=== PATIENT | male | born 1960 | race Caucasian/White ===

== ENCOUNTER 2017-01-23 06:45 | Day surgery (SDC) | payer BC ==
[2017-01-19 14:17] VITALS: BMI 32.5
[~2017-01-23 06:45] MED LIST: LACTATED RINGERS 1,000 ML IV SCH
[2017-01-23 07:11] VITALS: TEMP 97.8
[2017-01-23 07:19] LABS: Glucose,Whole Blood 146 mg/dL (75-99)
[2017-01-23] MEDS ORDERED: PROPOFOL 10 MG/ML 20 ML VIAL IV ONE (07:34)
[2017-01-23] MEDS ORDERED: LIDOCAINE 1% INJ 10MG/ML (20 ML MDV) ONE (07:34)
--- NOTE | 2017-01-23 08:00 | P.GSHP ---
History of Present Illness H&P Date: 01/23/17 Chief Complaint: GI bleed This is a 56-year-old male presents today for screening colonoscopy. He's had issues with GI bleed. Past Medical History Past Medical History: Diabetes Mellitus Additional Past Medical History / Comment(s): TAKEN OFF DIABETIC MEDS 3 MONTHS AGO- WATCHING DIET., EPISODE OF RECTAL BLEEDING X2. History of Any Multi-Drug Resistant Organisms: None Reported Past Surgical History: Orthopedic Surgery, Tonsillectomy Additional Past Surgical History / Comment(s): COLONOSCOPY, LEFT TORN MENISCUS. Past Anesthesia/Blood Transfusion Reactions: No Reported Reaction Past Psychological History: No Psychological Hx Reported Smoking Status: Former smoker Past Alcohol Use History: Rare Additional Past Alcohol Use History / Comment(s): QUIT SMOKING 1995. SMOKED 1 PPD . SMOKED APPROX 15 YEARS. Past Drug Use History: None Reported - Past Family History Mother Family Medical History: Cancer Additional Family Medical History / Comment(s): FEMALE CANCER Medications and Allergies Home Medications Medication Instructions Recorded Confirmed Type Ascorbic Acid [Vitamin C] 500 mg PO DAILY 01/19/17 01/23/17 History Naproxen Sodium [Aleve] 220 mg PO DAILY PRN 01/19/17 01/23/17 History Allergies Allergy/AdvReac Type Severity Reaction Status Date / Time No Known Allergies Allergy Verified 01/19/17 13:08 Surgical - Exam Vital Signs Temp Pulse Resp BP Pulse Ox 97.8 F 100 14 139/90 94 L 01/23/17 07:08 01/23/17 07:08 01/23/17 07:08 01/23/17 07:08 01/23/17 07:08 - General well developed, no distress - Eyes PERRL - ENT normal pinna - Neck no masses - Respiratory normal expansion - Cardiovascular Rhythm: regular - Abdomen Abdomen: soft, non tender Hernia: umbilical Results - Labs Abnormal Lab Results - Last 24 Hours (Table) 01/23/17 Range/Units 07:16 POC Glucose (mg/dL) 146 H (75-99) mg/dL Assessment and Plan Plan: GI bleed. We'll perform colonoscopy.
--- NOTE | 2017-01-23 08:14 | P.OP ---
Date of Procedure: 01/23/17 Preoperative Diagnosis: GI bleed Postoperative Diagnosis: Colon polyp at 20 cm Procedure(s) Performed: Colonoscopy Anesthesia: MAC Surgeon: Steve Bridges Pathology: other (Polyp at 20 cm) Condition: stable Disposition: PACU Description of Procedure: The patient's placed on the endoscopy table in the lateral position. He received IV sedation. Digital rectal exam was performed which revealed no abnormalities. The flexible colonoscope was then placed patient anus passed throughout the entire colon. The ileocecal valve was visualized. The cecum, ascending and transverse colon appeared normal. The descending and sigmoid colon appeared normal. The scope was then brought back and in the rectum at the 20 cm gabo there was a sessile polyp. This is removed with the biopsy forcep. The remainder the rectum appeared normal. Scope was withdrawn from from the patient.
[2017-01-23 08:17] VITALS: RESP 16
[2017-01-23 08:27] VITALS: PULSE 84
[2017-01-23 08:54] VITALS: BP 114/86
== END 2017-01-23 09:08 | disposition home or self-care (01) ==
LOC: ORWHC2ENDO 06:45
PROVIDERS: ATTEND Surgery
DX: K63.5 Polyp of colon (principal); K92.2 Gastrointestinal hemorrhage, unspecified; Z87.891 Personal history of nicotine dependence; Z79.899 Other long term (current) drug therapy
CPT/HCPCS: 88305; 45380; J2001; J2704

== ENCOUNTER 2017-04-04 05:59 | Day surgery (SDC) | payer BC ==
[2017-04-03 10:01] VITALS: BMI 31.8
[~2017-04-04 05:59] MED LIST changes: +DEXAMETHASONE SOD PHOSPHATE 10 MG/ML 1 ML VIAL IV ONE; +HEPARIN SODIUM,PORCINE 5,000 UNIT/ML 1 ML VIAL SQ ONE; +HYDROmorphone 0.5 MG/0.5 ML SYRINGE IVP PRN; +MIDAZOLAM 2 MG/2 ML VIAL IV PRN; +ONDANSETRON 4 MG/2 ML VIAL IVP ONE; +ceFAZolin IN SWFI 2 GM/20 ML SYRINGE IVP ONE
[2017-04-04 06:35] LABS: Glucose,Whole Blood 139 mg/dL (75-99)
[2017-04-04] MEDS ORDERED: LIDOCAINE 1% 20 ML VIAL (10MG/ML) FOR IV START INTRADERMA ONE (06:45)
[2017-04-04] MEDS ORDERED: BUPIVACAIN-EPI 0.25%-1:200,000 30 ML VIAL SQ ONE ×2 (07:23→08:22)
[2017-04-04] MEDS ORDERED: LIDOCAINE 2%-EPI 1:100,000 20 ML VIAL SQ ONE ×2 (07:23→08:22)
--- NOTE | 2017-04-04 07:52 | P.GSHP ---
History of Present Illness H&P Date: 04/04/17 Chief Complaint: Incarcerated umbilical hernia This a 56-year-old male who presents today for laparoscopic robotic-assisted repair of incarcerated inguinal hernia. Patient has an umbilical hernia for several years. He has increased in size and has had more discomfort the last 6 months. Past Medical History Past Medical History: Diabetes Mellitus Additional Past Medical History / Comment(s): TAKEN OFF DIABETIC MEDS 5 MONTHS AGO- WATCHING DIET. History of Any Multi-Drug Resistant Organisms: None Reported Past Surgical History: Orthopedic Surgery, Tonsillectomy Additional Past Surgical History / Comment(s): COLONOSCOPY, LEFT TORN MENISCUS. Past Anesthesia/Blood Transfusion Reactions: No Reported Reaction Smoking Status: Former smoker - Past Family History Mother Family Medical History: Cancer Additional Family Medical History / Comment(s): FEMALE CANCER Medications and Allergies Home Medications Medication Instructions Recorded Confirmed Type Ascorbic Acid [Vitamin C] 500 mg PO DAILY 01/19/17 04/03/17 History Naproxen Sodium [Aleve] 220 mg PO DAILY PRN 01/19/17 04/04/17 History Allergies Allergy/AdvReac Type Severity Reaction Status Date / Time No Known Allergies Allergy Verified 04/03/17 09:56 Surgical - Exam Vital Signs Temp Pulse Resp BP Pulse Ox 98.1 F 87 16 142/83 96 04/04/17 06:21 04/04/17 06:21 04/04/17 06:21 04/04/17 06:21 04/04/17 06:21 - General well developed, no distress - Eyes PERRL - ENT normal pinna - Neck no masses - Respiratory normal expansion - Cardiovascular Rhythm: regular - Abdomen Abdomen: soft, non tender Results - Labs Abnormal Lab Results - Last 24 Hours (Table) 04/04/17 Range/Units 06:30 POC Glucose (mg/dL) 139 H (75-99) mg/dL Assessment and Plan Assessment: Incarcerated umbilical hernia. We'll perform laparoscopic robotic assistance repair.
[2017-04-04] MEDS ORDERED: ROCURONIUM BROMIDE 10 MG/ML 10 ML VIAL IV ONE (07:58)
[2017-04-04] MEDS ORDERED: MIDAZOLAM 2 MG/2 ML VIAL ONE (07:58)
[2017-04-04] MEDS ORDERED: SUCCINYLCHOLINE CHLORIDE 100 MG/5 ML SYR IV ONE (07:58)
[2017-04-04] MEDS ORDERED: KETOROLAC 30 MG/ML 1 ML VIAL ONE (07:58)
[2017-04-04] MEDS ORDERED: GLYCOPYRROLATE 0.2 MG/ML 2 ML VIAL ONE (07:58)
[2017-04-04] MEDS ORDERED: LIDOCAINE 1% INJ 10MG/ML (20 ML MDV) ONE (07:58)
[2017-04-04] MEDS ORDERED: PROPOFOL 10 MG/ML 20 ML VIAL IV ONE (07:58)
[2017-04-04] MEDS ORDERED: NEOSTIGMINE 1 MG/ML 10 ML VIAL ONE (07:58)
[2017-04-04] MEDS ORDERED: fentaNYL (PF) 50 MCG/ML 2 ML AMP ONE (07:58)
[2017-04-04] MEDS ORDERED: LACTATED RINGERS 1,000 ML IV ONE (09:07)
--- NOTE | 2017-04-04 09:15 | P.OP ---
Date of Procedure: 04/04/17 Preoperative Diagnosis: Incarcerated umbilical hernia Postoperative Diagnosis: Incarcerated umbilical hernia Procedure(s) Performed: Laparoscopic robotic repair of incarcerated umbilical hernia Anesthesia: JARROD Surgeon: Steve Bridges Estimated Blood Loss (ml): 5 Pathology: other (Incarcerated fat fat) Condition: stable Disposition: PACU Description of Procedure: The patient's placed on the operating table in supine position. He received general anesthesia. His abdomen was prepped and draped usual sterile fashion. The skin incision sites were anesthetized 1% local Xylocaine. Using 11 blade the skin was incised left quadrant and then using a 8 mm robotic trocar under direct visualization peritoneal cavity is entered. The abdomen was then insufflated air. Next the 8 mm robotic trochars placed in the left lower quadrant and a 12 mm robotic trochars placed in the left lateral position. The patient's placed in the left side up position. He was then docked to the robot. The incarcerated fat was dissected free from the hernia using the hook cautery. The fascial defect was then repaired using OV lock suture. The repair was then buttressed with ventral light ST mesh secured with 2 OV lock suture. The patient was then undocked the robot. The needles were retrieved. The skin was then closed with interrupted 3-0 Monocryl suture. Dermabond was applied. Patient was sent to recovery in stable condition.
[2017-04-04 09:28] VITALS: TEMP 97.7
[2017-04-04 09:36] LABS: Glucose,Whole Blood 181 mg/dL (75-99)
[2017-04-04 10:08] VITALS: RESP 18
[2017-04-04 10:42] VITALS: BP 134/78; PULSE 88
== END 2017-04-04 11:07 | disposition home or self-care (01) ==
LOC: OR 05:59
PROVIDERS: ATTEND Surgery
DX: K42.0 Umbilical hernia with obstruction, without gangrene (principal); E11.9 Type 2 diabetes mellitus without complications; Z79.899 Other long term (current) drug therapy; Z87.891 Personal history of nicotine dependence; Z80.9 Family history of malignant neoplasm, unspecified
CPT/HCPCS: 49653; C1781; J2250; J1644; J1100; J2710; J0690; J2405; J2001; J3010; J1885; J0330; J2704; J1170; 88302

== ENCOUNTER 2024-01-12 06:38 | Observation (INO) | payer BC ==
[2024-01-12 06:44] VITALS: TEMP 97.5
--- NOTE | 2024-01-12 06:53 | ED ---
Chest Pain HPI - General Chief Complaint: Chest Pain Stated Complaint: Chest Pain Time Seen by Provider: 01/12/24 06:52 Source: patient, RN notes reviewed Mode of arrival: wheelchair Limitations: no limitations - History of Present Illness Initial Comments: 63-year-old male presented to ER with a chief complaint of stabbing chest pain. Patient states when he woke up this morning he noted a sharp stabbing chest pain. He denies any radiation. He states it is centralized in center chest. States pain is worse with deep breathing. Denies any nausea or vomiting. Does report mild dizziness. No peripheral edema. Reports a history of diabetes and high blood pressure. No history of MIs. - Related Data Home Medications Medication Instructions Recorded Confirmed Ascorbic Acid [Vitamin C] 500 mg PO DAILY 01/19/17 04/03/17 Naproxen Sodium [Aleve] 220 mg PO DAILY PRN 01/19/17 04/04/17 Previous Rx's Medication Instructions Recorded Docusate [Colace] 100 mg PO BID #20 capsule 04/04/17 HYDROcodone/APAP 7.5-325MG [[place] 1 each PO Q4H PRN #30 tab 04/04/17 7.5] Allergies Allergy/AdvReac Type Severity Reaction Status Date / Time No Known Allergies Allergy Verified 01/12/24 06:44 Review of Systems ROS Statement: Those systems with pertinent positive or pertinent negative responses have been documented in the HPI. ROS Other: All systems not noted in ROS Statement are negative. EKG Findings - EKG Comments: EKG Findings:: EKG taken at 6: 44 showing a sinus rhythm with occasional PVC. No acute ST segment or T wave abnormalities. Ventricular rate 88, FL interval 200, QRS duration 93, QT/QTc 327/372 Past Medical History Past Medical History: Diabetes Mellitus Additional Past Medical History / Comment(s): TAKEN OFF DIABETIC MEDS 3 MONTHS AGO- WATCHING DIET., EPISODE OF RECTAL BLEEDING X2. History of Any Multi-Drug Resistant Organisms: None Reported Past Surgical History: Orthopedic Surgery, Tonsillectomy Additional Past Surgical History / Comment(s): COLONOSCOPY, LEFT TORN MENISCUS. Past Anesthesia/Blood Transfusion Reactions: No Reported Reaction Past Psychological History: No Psychological Hx Reported Smoking Status: Never smoker Past Alcohol Use History: Rare Past Drug Use History: None Reported - Past Family History Mother Family Medical History: Cancer Additional Family Medical History / Comment(s): FEMALE CANCER General Exam Limitations: no limitations General appearance: alert, in no apparent distress Respiratory exam: Present: normal lung sounds bilaterally. Absent: respiratory distress, wheezes, rales, rhonchi, stridor Cardiovascular Exam: Present: regular rate, normal rhythm, normal heart sounds. Absent: systolic murmur, diastolic murmur, rubs, gallop, clicks Extremities exam: Present: normal inspection, full ROM, normal capillary refill. Absent: tenderness, pedal edema, joint swelling, calf tenderness Neurological exam: Present: alert, oriented X3, CN II-XII intact Skin exam: Present: warm, dry, intact, normal color. Absent: rash Course Vital Signs 01/12/24 01/12/24 06:41 08:04 Temperature 97.5 F L Pulse Rate 100 88 Respiratory 24 20 Rate Blood Pressure 151/91 115/80 O2 Sat by Pulse 99 95 Oximetry - Reevaluation(s) Reevaluation #1: 01/12/24 07:30 Patient reevaluated, chest discomfort has resolved. No signs of acute distress. Reevaluation #2: 01/12/24 08:08 Case discussed with [facility], Dr. Contreras for admission. Chest Pain MDM - MDM Was pt. sent in by a medical professional or institution (, PA, [employer], urgent care, hospital, or usp...) When possible be specific @ -No Did you speak to anyone other than the patient for history (EMS, parent, family, police, friend...)? What history was obtained from this source @ -No Did you review nursing and triage notes (agree or disagree)? Why? @ -I reviewed and agree with nursing and triage notes Were old charts reviewed (outside hosp., previous admission, EMS record, old EKG, old radiological studies, urgent care reports/EKG's, usp records)? Report findings @ -No old charts were reviewed Differential Diagnosis (chest pain, altered mental status, abdominal pain women, abdominal pain men, vaginal bleeding, weakness, fever, dyspnea, syncope, headach e, dizziness, GI bleed, back pain, seizure, CVA, palpatations, mental health, musculoskeletal)? @ -Differential Chest Pain: Stable Angina, Unstable Angina, STEMI, NSTEMI Aortic Dissection, Pneumothorax, Musculoskeletal, Esophageal Spasm GERD, Cholecystitis, Pancreatitis, Zoster, this is not meant to be an all-inclusive list. EKG interpreted by me (3pts min.). @ -As above X-rays interpreted by me (1pt min.). @ -Chest x-ray interpreted by me negative for acute cardiopulmonary process. CT interpreted by me (1pt min.). @ -None done U/S interpreted by me (1pt. min.). @ -None done What testing was considered but not performed or refused? (CT, X-rays, U/S, labs)? Why? @ -None What meds were considered but not given or refused? Why? @ -None Did you discuss the management of the patient with other professionals (professionals i.e. , PA, [employer], lab, RT, psych nurse, social services aide, guard immigration, teacher, surface to air weapons officer, case planner)? Give summary @ -Discussed with [facility], for admission. Was smoking cessation discussed for >3mins.? @ -No Was critical care preformed (if so, how long)? @ -No Were there social determinants of health that impacted care today? How? (Homelessness, low income, unemployed, alcoholism, drug addiction, transportation, low edu. Level, literacy, decrease access to med. care, retirement, rehab)? @ -No Was there de-escalation of care discussed even if they declined (Discuss DNR or withdrawal of care, Hospice)? DNR status @ -No What co-morbidities impacted this encounter? (DM, HTN, Smoking, COPD, CAD, Cancer, CVA, ARF, Chemo, Hep., AIDS, mental health diagnosis, sleep apnea, morbid obesity)? @ -Diabetes mellitus, hypertension Was patient admitted / discharged? Hospital course, mention meds given and route, prescriptions, significant lab abnormalities, going to OR and other pertinent info. @ -Admitted. 63-year-old male presented to ER with a chief complaint of chest discomfort. History and physical exam completed. Vitals upon arrival remarkable for temperature of 97.5, heart rate 100, respiratory 24, blood pressure 151/91, oxygen saturation 98% on room air. Patient in no signs of acute distress and nontoxic appearing. No acute findings on exam. Laboratory studies unremarkable. Initial troponin undetectable. EKG showing sinus rhythm with no acute infarct or ischemia. Patient received IV fluids in the ER. Interpreted by me negative for acute cardiopulmonary process. HEART score 3. Due to patient's medical history and age admission was considered and discussed with [facility], Dr. Contreras for further cardiac work up rule out ACS. On reevaluation, patient reporting improved symptoms with no current chest pain. Patient agreeable for admission. Patient admitted in stable condition for further evaluation and treatment. Cardiology on consult. Case discussed with ED attending Dr. Salinas. Undiagnosed new problem with uncertain prognosis? @ -No Drug Therapy requiring intensive monitoring for toxicity (Heparin, Nitro, Insulin, Cardizem)? @ -No Were any procedures done? @ -No Diagnosis/symptom? @ -Chest pain Acute, or Chronic, or Acute on Chronic? @ -Acute Uncomplicated (without systemic symptoms) or Complicated (systemic symptoms)? @ -Complicated Side effects of treatment? @ -No Exacerbation, Progression, or Severe Exacerbation? @ -No Poses a threat to life or bodily function? How? (Chest pain, [place], IA, pneumonia, PE, COPD, DKA, ARF, appy, cholecystitis, CVA, Diverticulitis, Homicidal, Suicidal, threat to staff... and all critical care pts) @ -Yes, chest pain can be ACS which can lead to cardiac arrhythmias which can be life threatening. Disposition Clinical Impression: Chest pain Disposition: ADMITTED IP TO THIS HOSP Condition: Stable Time of Disposition: 08:09
[2024-01-12] MEDS: SODIUM CHLORIDE 0.9% 1,000 ML IV STA (07:02)
[2024-01-12 07:14] LABS: Basophils % (A) 0 %; Eosinophils # (A) 0.2 k/uL (0-0.7); Eosinophils % (A) 3 %; HCT 49.5 % (39.0-53.0); HGB 16.8 gm/dL (13.0-17.5); Lymphocytes # (A) 1.8 k/uL (1.0-4.8); Lymphocytes % (A) 29 %; MCH 31.7 pg (25.0-35.0); MCHC 33.9 g/dL (31.0-37.0); MCV 93.3 fL (80.0-100.0); Monocytes # (A) 0.3 k/uL (0-1.0); Monocytes % (A) 5 %; Neutrophils # (A) 3.8 k/uL (1.3-7.7); Neutrophils % (A) 61 %; Platelet Count 236 k/uL (150-450); RBC 5.31 m/uL (4.30-5.90); RDW 13.7 % (11.5-15.5); WBC 6.3 k/uL (3.8-10.6)
[2024-01-12 07:31] LABS: INR 0.9 (<1.2); Partial Thromboplastin Time 26.7 sec (22.0-30.0); Prothrombin Time 10.4 sec (10.0-12.5)
[2024-01-12 07:33] LABS: ALT 25 U/L (4-49); AST 22 U/L (17-59); African American GFR (CKD) >90 (>60 ml/min/1.73 sqM); Albumin 4.7 g/dL (3.5-5.0); Alkaline Phosphatase 47 U/L (38-126); Anion Gap 8 mmol/L; Blood Urea Nitrogen 19 mg/dL (9-20); Calcium 9.8 mg/dL (8.4-10.2); Carbon Dioxide 23 mmol/L (22-30); Chloride 108 mmol/L (98-107); Glucose 121 mg/dL (74-99); Magnesium 1.9 mg/dL (1.6-2.3); Non-African American GFR(CKD) 82 (>60 ml/min/1.73 sqM); Potassium 4.6 mmol/L (3.5-5.1); Sodium 139 mmol/L (137-145); Total Bilirubin 0.8 mg/dL (0.2-1.3)
--- NOTE | 2024-01-12 07:57 | XR ---
EXAMINATION TYPE: XR chest 2V DATE OF EXAM: 01/12/2024 COMPARISON: 01/01/2013 TECHNIQUE: PA and lateral views submitted. HISTORY: Chest pain FINDINGS: The lungs are clear and there is no pneumothorax, pleural effusion, or focal pneumonia. Heart size normal and no overt failure. Osseous structures demonstrate hypertrophic and degenerative changes of the spine. Nodule overlying the right lung likely related neural shadow. IMPRESSION: 1. No acute process.
[2024-01-12] MEDS: NITROGLYCERIN SL TABS 0.4 MG TAB SUBLINGUAL STA (08:05)
[2024-01-12] MEDS ORDERED: NALOXONE 0.4 MG/ML 1 ML VIAL IV PRN (08:06)
[2024-01-12] MEDS: SODIUM CHLORIDE 0.9% 1,000 ML IV SCH (08:42)
--- NOTE | 2024-01-12 10:18 | P.CRDCN ---
History of Present Illness Consult date: 01/12/24 Consult reason: chest pain History of present illness: This is a 63-year-old male with no previous cardiac history. He has a past medical history of hypertension, hyperlipidemia, diabetes mellitus type 2. We have been asked to evaluate the patient for chest pain. Patient states that he was sleeping when he opened his eyes he experienced left-sided chest pain at the left sternal border. He had increased pain with deep breathing. Pain is completely gone now. No history of CVA no history of DE. He quit smoking in 1995. He is normally very active and was mowing lawns and doing yard work yesterday. Blood pressure 26/84, heart rate 80, pulse ox 95% on room air. Repeat troponins are pending. EKG: Sinus rhythm with no acute ST-T wave changes. Chest x-ray: No acute process Laboratory studies: CBC normal. D-dimer 0.3. Sodium 139, potassium 4.6, BUN 19 and creatinine 0.99. Troponin negative x 1. Magnesium 1.9. Home cardiac medications: Atorvastatin 20 mg at bedtime, lisinopril 5 mg daily. Review Of Systems: At the time of my exam: CONSTITUTIONAL: Denies fever or chills. HEENT: Denies blurred vision, vision changes, or eye pain. Denies hemoptysis CARDIOVASCULAR: Denies chest pain. Denies orthopnea. Denies PND. Denies pal pitations RESPIRATORY: Denies shortness of breath. GASTROINTESTINAL: Denies abdominal pain. Denies nausea or vomiting. HEMATOLOGIC: Denies bleeding disorders. GENITOURINARY: Denies any blood in urine. SKIN: Denies puritis. Denies rash. Physical examination: Gen: This is a 63-year-old male in no acute distress VS: reviewed HEENT: Head is atraumatic, normocephalic. Pupils equal, round. Sclerae is anicteric. NECK: Supple. No JVD. LUNGS: Clear to auscultation. No wheezes or rhonchi. No intercostal retractions. HEART: Regular rate and rhythm. No murmur. ABDOMEN: Soft No tenderness. EXTREMITIES: No pedal edema. No calf tenderness. NEUROLOGICAL: Patient is awake, alert and oriented x3. Assessment: Atypical chest pain, acute coronary syndrome ruled out Plan: Resume patient's home cardiac medications Obtain repeat troponin at noon Obtain 2-D echocardiogram and Doppler study to assess cardiac structure and function If testing is unremarkable, patient may get up and ambulate and assess for chest pain. If patient is chest pain-free, he is cleared for discharge and may follow-up in the office with Dr. NASRIN Mcdermott in 1 week and plan for outpatient stress testing. Thank you kindly for this consultation. Nurse practitioner note has been reviewed, I agree with documented findings and plan of care. Patient was seen and examined. Past Medical History Past Medical History: Diabetes Mellitus Additional Past Medical History / Comment(s): TAKEN OFF DIABETIC MEDS 3 MONTHS AGO- WATCHING DIET., EPISODE OF RECTAL BLEEDING X2. History of Any Multi-Drug Resistant Organisms: None Reported Past Surgical History: Orthopedic Surgery, Tonsillectomy Additional Past Surgical History / Comment(s): COLONOSCOPY, LEFT TORN MENISCUS. Past Anesthesia/Blood Transfusion Reactions: No Reported Reaction Past Psychological History: No Psychological Hx Reported Smoking Status: Never smoker Past Alcohol Use History: Rare Past Drug Use History: None Reported - Past Family History Mother Family Medical History: Cancer Additional Family Medical History / Comment(s): FEMALE CANCER Medications and Allergies Home Medications Medication Instructions Recorded Confirmed Type Atorvastatin [Lipitor] 20 mg PO HS 01/12/24 01/12/24 History Empagliflozin [Jardiance] 25 mg PO DAILY 01/12/24 01/12/24 History Semaglutide [Ozempic] 2 mg SQ FR 01/12/24 01/12/24 History icosapent ethyL [Icosapent Ethyl] 2 gm PO BID 01/12/24 01/12/24 History lisinopriL [Prinivil] 5 mg PO DAILY 01/12/24 01/12/24 History metFORMIN HCL 1,000 mg PO BID 01/12/24 01/12/24 History Allergies Allergy/AdvReac Type Severity Reaction Status Date / Time No Known Allergies Allergy Verified 01/12/24 09:06 Physical Exam Vitals: Vital Signs Temp Pulse Resp BP Pulse Ox 01/12/24 08:04 88 20 115/80 95 01/12/24 06:41 97.5 F L 100 24 151/91 99 Intake and Output 01/11/24 01/12/24 01/12/24 22:59 06:59 14:59 Other: Weight 117.934 kg Results 01/12/24 06:44 01/12/24 06:44 Cardiac Enzymes 01/12/24 01/12/24 Range/Units 06:44 06:44 AST 22 (17-59) U/L Troponin I <0.012 (0.000-0.034) ng/mL Coagulation 01/12/24 Range/Units 06:44 PT 10.4 (10.0-12.5) sec APTT 26.7 (22.0-30.0) sec CBC 01/12/24 Range/Units 06:44 WBC 6.3 (3.8-10.6) k/uL RBC 5.31 (4.30-5.90) m/uL Hgb 16.8 (13.0-17.5) gm/dL Hct 49.5 (39.0-53.0) % Plt Count 236 (150-450) k/uL Comprehensive Metabolic Panel 01/12/24 Range/Units 06:44 Sodium 139 (137-145) mmol/L Potassium 4.6 (3.5-5.1) mmol/L Chloride 108 H (98-107) mmol/L Carbon Dioxide 23 (22-30) mmol/L BUN 19 (9-20) mg/dL Creatinine 0.99 (0.66-1.25) mg/dL Glucose 121 H (74-99) mg/dL Calcium 9.8 (8.4-10.2) mg/dL AST 22 (17-59) U/L ALT 25 (4-49) U/L Alkaline Phosphatase 47 (38-126) U/L Total Protein 7.0 (6.3-8.2) g/dL Albumin 4.7 (3.5-5.0) g/dL Current Medications Generic Name Dose Route Start Last Admin Trade Name Freq PRN Reason Stop Dose Admin Sodium Chloride 1,000 mls @ 75 mls/hr 01/12/24 08:15 01/12/24 08:42 Saline 0.9% IV 75 mls/hr .[id number] [place] Administration Naloxone HCl 0.2 mg 01/12/24 08:06 Naloxone 0.4 Mg/Ml 1 Ml Vial IV Q2M PRN Opioid Reversal Intake and Output 01/11/24 01/12/24 01/12/24 22:59 06:59 14:59 Other: Weight 117.934 kg 01/12/24 06:44 09/06/24 06:44
[2024-01-12] MEDS: lisinopriL 5 MG TAB PO SCH (10:27)
--- NOTE | 2024-01-12 11:17 | CA ---
Transthoracic Echo Report Name: Han Johansen Age: 63 Gender: M : 1960 Exam Date: 01/12/2024 09:42 Exam Location: [facility] Ht (in): 75 Wt (lb): 260 Ordering Physician: Rachael Perera Attending/Referring Phys: Toolroom Machinist Glory Iraheta RDCS Procedure CPT: Indications: LVF Cardiac Hx: Technical Quality: Fair Contrast 1: Total Dose (mL): Contrast 2: Total Dose (mL): MEASUREMENTS (Male / Female) Normal Values 2D ECHO LV Diastolic Diameter PLAX 4.6 cm 4.2 - 5.9 / 3.9 - 5.3 cm LV Systolic Diameter PLAX 3.0 cm IVS Diastolic Thickness 1.1 cm 0.6 - 1.0 / 0.6 - 0.9 cm LVPW Diastolic Thickness 1.1 cm 0.6 - 1.0 / 0.6 - 0.9 cm LV Relative Wall Thickness 0.5 RV Internal Dim ED PLAX 3.2 cm LA Systolic Diameter LX 3.9 cm 3.0 - 4.0 / 2.7 - 3.8 cm LV Diastolic Volume MOD BP 73.4 cm??? 67 - 155 / 56 - 104 cm??? LV Systolic Volume MOD BP 25.6 cm??? 22 - 58 / 19 - 49 cm??? LV Ejection Fraction MOD BP 65.1 % >= 55 % LV Cardiac Index MOD BP 1644.4 cm???/min???m??? LV Diastolic Volume MOD 4C 70.2 cm??? LV Systolic Volume MOD 4C 25.5 cm??? LV Ejection Fraction MOD 4C 63.6 % LV Cardiac Index MOD 4C 1538.1 cm???/min???m??? LV Diastolic Length 4C 8.4 cm LV Systolic Length 4C 7.1 cm LV Diastolic Volume MOD 2C 69.4 cm??? LV Systolic Volume MOD 2C 23.9 cm??? LV Ejection Fraction MOD 2C 65.5 % LV Cardiac Index MOD 2C 1565.5 cm???/min???m??? LV Diastolic Length 2C 7.3 cm LV Systolic Length 2C 6.0 cm M-MODE Aortic Root Diameter MM 3.2 cm LA Systolic Diameter MM 3.6 cm LA Ao Ratio MM 1.1 AV Cusp Separation MM 1.8 cm DOPPLER AV Peak Velocity 171.2 cm/s AV Peak Gradient 11.7 mmHg AV Mean Velocity 140.5 cm/s AV Mean Gradient 8.4 mmHg AV Velocity Time Integral 38.2 cm Mitral E Point Velocity 65.1 cm/s Mitral A Point Velocity 80.8 cm/s Mitral E to A Ratio 0.8 MV Deceleration Time 237.3 ms MV E' Velocity 8.0 cm/s Mitral E to MV E' Ratio 8.1 TR Peak Velocity 168.3 cm/s TR Peak Gradient 11.3 mmHg Right Ventricular Systolic Press 16.3 mmHg FINDINGS Left Ventricle Left ventricular ejection fraction is estimated at 55-60%. Mildly increased septal wall thickness. Left ventricular cavity size normal. Normal left ventricular systolic function with no obvious regional wall motion abnormalities. Right Ventricle Normal right ventricular size and function. Right ventricular systolic pressure within normal limits. Right Atrium Normal right atrial size. Left Atrium Normal left atrial size. Mitral Valve Structurally normal mitral valve. Mild mitral regurgitation. No mitral stenosis. Aortic Valve Trileaflet aortic valve. Fixed NCC. Thickened aortic valve without stenosis. Diffuse thickening of the aortic valve cusps with reduced excursion. No aortic regurgitation. Tricuspid Valve Structurally normal tricuspid valve. Pulmonic Valve Structurally normal pulmonic valve. Trace pulmonic regurgitation. No pulmonic stenosis. Pericardium No pericardial or pleural effusion. Aorta Normal size aortic root and proximal ascending aorta. CONCLUSIONS Normal LV size and systolic function. Aortic valve is trileaflet and the cusps are thickened specifically the noncoronary cusp is thickened and some restriction but no stenosis or regurgitation. No pulmonary hypertension. No pericardial effusion. Previewed by: Dr. Marylu Mcdermott MD (Electronically Signed) Final Date: 12 January 2024 11:17
--- NOTE | 2024-01-12 11:27 | P.HPIM ---
History of Present Illness Patient is 63-year-old male came in with complaints of chest pain in the midsternal area nonradiating sharp in nature not associate with food woke up with 7/10 severe chest pain increased with deep breathing troponin's were negative EKG did not show any acute ST-T wave changes 2 sets of troponins are negative blood pressure essentially within normal limits patient does have history of diabetes mellitus and hypertension, patient chest pain is not associated associated with diaphoresis, lightheadedness. Chest pain is nonexertional in nature. REVIEW OF SYSTEMS: All other systems are negative except those mentioned in the HPI PHYSICAL EXAMINATION: GENERAL: The patient is alert and oriented x3, not in any acute distress. Well developed, well nourished. HEENT: Pupils are round and equally reacting to light. EOMI. No scleral icterus. No conjunctival pallor. Normocephalic, atraumatic. No pharyngeal erythema. No thyromegaly. CARDIOVASCULAR: S1 and S2 present. No murmurs, rubs, or gallops. PULMONARY: Chest is clear to auscultation, no wheezing or crackles. ABDOMEN: Soft, nontender, nondistended, normoactive bowel sounds. No palpable organomegaly. MUSCULOSKELETAL: No joint swelling or deformity. EXTREMITIES: No cyanosis, clubbing, or pedal edema. NEUROLOGICAL: Gross neurological examination did not reveal any focal deficits. SKIN: No rashes. Assessment and plan Chest pain atypical will rule out acute coronary syndromes patient had an echocardiogram which is essentially within normal limits if third set of troponin is negative patient will be discharged to follow-up with cardiology as an outpatient -Type 2 diabetes mellitus -Hypertension For above-mentioned chronic medical problems patient can be resumed on appropriate home medications : Past Medical History Past Medical History: Diabetes Mellitus Additional Past Medical History / Comment(s): TAKEN OFF DIABETIC MEDS 3 MONTHS AGO- WATCHING DIET., EPISODE OF RECTAL BLEEDING X2. History of Any Multi-Drug Resistant Organisms: None Reported Past Surgical History: Orthopedic Surgery, Tonsillectomy Additional Past Surgical History / Comment(s): COLONOSCOPY, LEFT TORN MENISCUS. Past Anesthesia/Blood Transfusion Reactions: No Reported Reaction Past Psychological History: No Psychological Hx Reported Smoking Status: Never smoker Past Alcohol Use History: Rare Past Drug Use History: None Reported - Past Family History Mother Family Medical History: Cancer Additional Family Medical History / Comment(s): FEMALE CANCER Medications and Allergies Home Medications Medication Instructions Recorded Confirmed Type Atorvastatin [Lipitor] 20 mg PO HS 01/12/24 01/12/24 History Empagliflozin [Jardiance] 25 mg PO DAILY 01/12/24 01/12/24 History Semaglutide [Ozempic] 2 mg SQ FR 01/12/24 01/12/24 History icosapent ethyL [Icosapent Ethyl] 2 gm PO BID 01/12/24 01/12/24 History lisinopriL [Prinivil] 5 mg PO DAILY 01/12/24 01/12/24 History metFORMIN HCL 1,000 mg PO BID 01/12/24 01/12/24 History Allergies Allergy/AdvReac Type Severity Reaction Status Date / Time No Known Allergies Allergy Verified 01/12/24 09:06 Physical Exam Vitals: Vital Signs Temp Pulse Resp BP Pulse Ox 01/12/24 08:04 88 20 115/80 95 01/12/24 06:41 97.5 F L 100 24 151/91 99 Intake and Output 01/11/24 01/12/24 01/12/24 22:59 06:59 14:59 Other: Weight 117.934 kg Results CBC & Chem 7: 01/12/24 06:44 01/12/24 06:44 Labs: Abnormal Lab Results - Last 24 Hours (Table) 01/12/24 Range/Units 06:44 Chloride 108 H (98-107) mmol/L Glucose 121 H (74-99) mg/dL
--- NOTE | 2024-01-12 11:28 | P.DS ---
Providers Date of admission: 01/12/24 08:02 Attending physician: Татьяна Rosenbaum Consults: 01/12/24 08:06 Consult Physician Urgent Consulting Provider: Christian Adam Consult Reason/Comments: chest pain Do you want consulting provider notified?: Yes Primary care physician: [facility] Course: Patient is 63-year-old male came in with complaints of chest pain in the midsternal area nonradiating sharp in nature not associate with food woke up with 7/10 severe chest pain increased with deep breathing troponin's were negative EKG did not show any acute ST-T wave changes 2 sets of troponins are negative blood pressure essentially within normal limits patient does have history of diabetes mellitus and hypertension, patient chest pain is not associated associated with diaphoresis, lightheadedness. Chest pain is nonexertional in nature. REVIEW OF SYSTEMS: All other systems are negative except those mentioned in the HPI PHYSICAL EXAMINATION: GENERAL: The patient is alert and oriented x3, not in any acute distress. Well developed, well nourished. HEENT: Pupils are round and equally reacting to light. EOMI. No scleral icterus. No conjunctival pallor. Normocephalic, atraumatic. No pharyngeal erythema. No thyromegaly. CARDIOVASCULAR: S1 and S2 present. No murmurs, rubs, or gallops. PULMONARY: Chest is clear to auscultation, no wheezing or crackles. ABDOMEN: Soft, nontender, nondistended, normoactive bowel sounds. No palpable organomegaly. MUSCULOSKELETAL: No joint swelling or deformity. EXTREMITIES: No cyanosis, clubbing, or pedal edema. NEUROLOGICAL: Gross neurological examination did not reveal any focal deficits. SKIN: No rashes. Assessment and plan Chest pain atypical will rule out acute coronary syndromes patient had an echocardiogram which is essentially within normal limits if third set of troponin is negative patient will be discharged to follow-up with cardiology as an outpatient -Type 2 diabetes mellitus -Hypertension For above-mentioned chronic medical problems patient can be resumed on appropriate home medications : Patient Condition at Discharge: Stable Plan - Discharge Summary New Discharge Prescriptions: No Action Semaglutide [Ozempic] 2 mg SQ FR Empagliflozin [Jardiance] 25 mg PO DAILY icosapent ethyL [Icosapent Ethyl] 2 gm PO BID lisinopriL [Prinivil] 5 mg PO DAILY Atorvastatin [Lipitor] 20 mg PO HS metFORMIN HCL 1,000 mg PO BID Discharge Medication List Atorvastatin [Lipitor] 20 mg PO HS 01/12/24 [History] Empagliflozin [Jardiance] 25 mg PO DAILY 01/12/24 [History] Semaglutide [Ozempic] 2 mg SQ FR 01/12/24 [History] icosapent ethyL [Icosapent Ethyl] 2 gm PO BID 01/12/24 [History] lisinopriL [Prinivil] 5 mg PO DAILY 01/12/24 [History] metFORMIN HCL 1,000 mg PO BID 01/12/24 [History] Follow up Appointment(s)/Referral(s): Marylu Mcdermott MD [STAFF PHYSICIAN] - 1 Week Minh Mathis MD [Primary Care Provider] - 1-2 days
[2024-01-12 16:20] VITALS: BP 136/82; PULSE 69; RESP 18
[2024-01-12] MEDS ORDERED: ATORVASTATIN 20 MG TAB PO SCH (21:00)
== END 2024-01-12 16:17 | disposition home or self-care (01) ==
LOC: EC 06:38 → 6NMEDSUR 08:02
PROVIDERS: ADMIT Hospitalist; ATTEND Hospitalist
DX: R07.89 Other chest pain (principal); I10 Essential (primary) hypertension; E11.9 Type 2 diabetes mellitus without complications; E78.5 Hyperlipidemia, unspecified; Z79.84 Long term (current) use of oral hypoglycemic drugs; Z79.85 Long-term (current) use of injectable non-insulin antidiabetic drugs; Z79.899 Other long term (current) drug therapy
CPT/HCPCS: 36415; 71046; 80053; 83735; 84484; 85025; 85379; 85610; 85730; 93005; 93306; 96360; 99285